=== PATIENT | male | born 1960 | race Caucasian/White ===

== ENCOUNTER 2020-02-25 08:27 | Outpatient (CLI) | payer MEDICARE ==
--- NOTE | 2020-02-25 09:08 | CT ---
CT THORAX NONCONTRAST: DATE: 02/25/2020 HISTORY: 67-year-old male with solitary pulmonary nodule. Dyspnea and cough. COMPARISON: none available FINDINGS: In the right lower lobe centrally located, surrounded by branches of first order branches of posterio r basilar segmental branch of right lower lobe bronchus and equivalent pulmonary vessels, there is a noncalcified soft tissue density pulmonary nodule measuring approximately 1.8 x 1.7 x 1.7 cm. There are numerous small bullae and blebs, mostly in peripheral and medial subpleural locations, but there is at least one 1.5 cm right upper lobe air cyst not contacting the pleural surface. No hyperinflation. No consolidation. No mediastinal lymphadenopathy. It is more difficult to evaluate fo r hilar lymphadenopathy without IV contrast. No pleural effusion or pneumothorax. No cardiomegaly. No thoracic aortic aneurysm. Trachea and bilateral mainstem bronchi are patent and clear. There are p latelike densities in the base of the left lower lobe and lingula, consistent with subsegmental atelectasis or scar. No groundglass lesions. There is a 3.3 x 2.7 x 3 cm circumscribed right adrenal nodule. Although the overall attenuation of t he mass is 35 Hounsfield units, the posterior portion has density of 9 Hounsfield units, indicating fatty component. Hepatic attenuation is diffusely low consistent with fatty liver. No splenomegaly. IMPRESSION: 1) an 18 mm right lower lobe pulmonary nodule. This could represent primary lung cancer. CT-guided pe rcutaneous biopsy would be risky because of adjacent blood vessels, and technically challenging because of the location. Recommend PET scan. Consider bronchoscopy. 2) a 3.3 cm right adrenal nodule. Favor adrenal myolipoma or adrenal adenoma. However, PET scan would still be useful. 3) paraseptal emphysema.
== END 2020-02-25 08:28 | disposition home or self-care (01) ==
LOC: BICCT 08:27
PROVIDERS: ATTEND Internal Medicine Critical Care Medicine
DX: R91.1 Solitary pulmonary nodule (principal); J43.9 Emphysema, unspecified; E27.8 Other specified disorders of adrenal gland
CPT/HCPCS: 71250

== ENCOUNTER 2020-05-22 09:31 | Outpatient (CLI) | payer MEDICARE ==
--- NOTE | 2020-05-22 11:16 | PET ---
EXAM: PET/CT HISTORY: Solitary pulmonary nodule TECHNIQUE: PET scanning with CT attenuation correction was performed from the base of the brain to the proximal thighs following the intravenous administration of 10.5 millicuries [id number]. COMPARISON: CT the thorax without contrast dated February 25, 2020 FINDINGS: Biodistribution:The biodistribution for the exam appears acceptable. Head and neck: There is appropriate background activity within the brain. There is some foci of hyper metabolic uptake seen within the posterior spinal musculature, left greater than right, which is likely related to muscular contractions. No hypermetabolic lymph node or mass is identified. Thorax: The right infrahilar pulmonary nodule demonstrates a peak SUV activity of 3.57 and a mean act ivity of 3.13. No additional hypermetabolic pulmonary nodule is demonstrated. There is scattered emphysema. There is subsegmental volume loss in the left lower lobe and lingula. Abdomen and pelvis: There is expected background activity within the GI and systems.No hypermetabo lic mass or lymphadenopathy is evident. There is no hypermetabolic uptake seen involving the right adrenal nodule identified on the prior CT evaluation. The maximum uptake is 2.26 with a mean uptake o f 2.18. There are some internal areas of macroscopic fat. Findings are suspicious for right adrenal myelolipoma. There is fatty infiltration of the liver. No hypermetabolic ascites is present. Osseous structures and skin: There is a focus of hypermetabolic uptake involving the left gluteus max imus musculature, overlying the lower posterior right greater trochanter. The peak activity of this region is 4.16 with a mean activity of 3.45. There is some mild generalized increased background upta ke involving the hip girdle musculature. This focus of hypermetabolic activity may be related to adjacent bursitis or small muscular strain. No overt focal lesion is evident within this location. No hypermetabolic skin or osseous lesion is demonstrated. There is a chronic ununited posterior lateral left ninth rib fracture. IMPRESSION: Abnormal PET/CT. 1. The right infrahilar pulmonary nodule demonstrates hypermetabolic activity and is suspicious for m alignancy. 2. No definite evidence to suggest hypermetabolic malignant lymphadenopathy or distant metastatic spr ead. 3. Focus of hypermetabolic activity involving the lateral left gluteus dinorah is suspicious for an a stephanie of muscular strain or left trochanteric bursitis. Recommend correlation with the clinical examination. Muscular metastatic lesion is felt to be unlikely. There is some background increased mu scular activity likely related to muscular contraction. This is most prominent in the region of the neck where there is some hypermetabolic activity seen within the left paraspinal musculature. 4. No hypermetabolic uptake involving the large right adrenal lesion. There is some foci of macroscop ic fat within the lesion most consistent with an adrenal myelolipoma.
== END 2020-05-22 09:32 | disposition home or self-care (01) ==
LOC: PET 09:31
PROVIDERS: ATTEND Internal Medicine Critical Care Medicine
DX: R91.1 Solitary pulmonary nodule (principal)
CPT/HCPCS: 78815; A9552